=== PATIENT | male | born 1990 | race Caucasian/White ===

== ENCOUNTER → 2021-05-11 14:11 | Outpatient (CLI) | payer SELFPAY ==
[2021-05-11 17:52] LABS: Liquefaction Semen YES (YES); Volume Semen 3.5 (1.0-5.0)
[2021-05-11 17:53] LABS: PH Semen 8 (7-8); Sperm Count 41 x10^6/mL (20-150); Sperm Morphology 80 %ABNORM (0-30); Sperm Motility 25% % Motile
== END ==
PROVIDERS: Referring Provider Registered Nurse; Visit Provider Registered Nurse
DX: N49.9 Inflammatory disorder of unspecified male genital organ (principal)
CPT/HCPCS: 89320